=== PATIENT | male | born 1970 | race Caucasian/White ===

== ENCOUNTER → 2017-04-16 | Outpatient (CLI) | payer OTHER, BC | LOC: BMCIMAGING 11:50 → EDSTATUS 11:53 | PROVIDERS: ATTEND Family Medicine | DX: R06.02 Shortness of breath (principal) ==

== ENCOUNTER 2017-05-14 12:45 | Emergency (ER) | payer OTHER, BC ==
[2017-05-14 13:13] VITALS: O2SAT 93
[2017-05-14] MEDS ORDERED: NS 1,000 ML IV ONE ×2 (14:47→15:11)
--- NOTE | 2017-05-14 14:47 | EDPHY ---
General - History Smoking Status: Never smoked Narrative: CHIEF COMPLAINT: Muscle weakness HISTORY OF PRESENT ILLNESS: Patient complains of 3 days of muscle weakness. This was gradual onset. Constant duration. [id number] 1st. Continually worsening. No chest pain or shortness of breath. No confusion. No fever. No difficulty with thought process. Hip the similar process 3 weeks ago that he attributed to taking Rexulti. He stop taking medication and felt better the next day. In the interim he was started on Zyprexa by psychiatrist. When symptoms started 3 days ago he stopped taking this but no improvement. His psychiatrist was concerned about the weakness, thus he sent him here. The weakness is involves all his limbs. He has no difficulty performing his functions but feels as though he is weak when doing so. No incontinence of bowel or bladder. No other associated complaints or modifying factors. REVIEW OF SYSTEMS: Ten systems reviewed and are negative unless otherwise noted in the HPI PCP: Dr. Alonso palma SPECIALISTS: Dr. Heard PAST MEDICAL HISTORY: Bipolar disorder, chronic neck pain PAST SURGICAL HISTORY: Cervical spine fusion 2009 SOCIAL HISTORY: Nonsmoker. No alcohol or drug use. Currently on disability FAMILY HISTORY: Noncontributory EXAMINATION General Appearance: Alert, no distress Head: normocephalic, atraumatic Eyes: Pupils equal and round, no conjunctival pallor or injection. EOMs intact. ENT, Mouth: Mucous membranes moist. Airway patent Neck: Normal inspection, supple, non-tender Respiratory: Lungs are clear to auscultation. No wheezing, rhonchi or crackles Cardiovascular: Regular rate and rhythm. No murmur Gastrointestinal: Abdomen is soft and nontender Back: non-tender, no bony abnormalities Neurological: GCS 15. A&O, nonfocal, normal gait. Strength is symmetric in all 4 limbs. No pronator drift. No tremor. No rigidity in the limbs or proximal musculature. No pronator drift. No dysmetria. Skin: Warm and dry, no rash Extremities: Nontender, no pedal edema Psychiatric: Mood and affect normal DIFFERENTIAL DIAGNOSES: Including but not limited to weakness, dehydration, rhabdomyolysis, MDM: 2:45 p.m. Muscle weakness of 3 days duration. The patient express is that his psychiatrist was originally concern for neuroleptics malignant syndrome. I do not appreciate any evidence of this. He has no altered mentation, no rigidity, no evidence of distal to non media. His vital signs are within normal limits. He is awake alert no acute distress. His strength is symmetric with normal neuro examination. I have ordered laboratory studies, IV fluid. These are all pending at this time. 3:10 p.m. Case discussed with Dr. Aaron. He agrees with MDM thus far. 4:10 p.m. Laboratory studies are all within normal limits, with exception of mild hemoconcentration. I re-evaluated the patient. He still exhibits no signs of neuroleptics malignant syndrome. He is not altered, he is not hyperthermic, he is not rigid, nor does he exhibit any dysautonomia. 4:20 p.m. Case discussed with the patient's psychiatrist Dr. Heard. He agrees based on my assessment and laboratory studies that there is no evidence of in MS at this time. Although he has not evaluated the patient today he is aware the patient's history. He would like to see the patient early next week for outpatient follow-up. 4:40 p.m. Patient re-evaluated. He is resting comfortably in no acute distress. He is not tachycardic or tachypneic. He is feeling better with IV fluid as he did appear to be hemoconcentrated. We discussed discharge home with anti- inflammatories, Aleve 2 pills twice daily. We discussed contacting his primary care physician for outpatient follow-up. We discussed ED precautions for any worsening weakness, numbness, tingling, chest pain, shortness of breath. He is comfortable with this plan and discharged home stable condition. EKG interpretation: Dr. Aaron Sinus rhythm with no acute ischemia. No changes from previous EKG SUPERVISION: Patient was independently examined, but I discussed the case with my secondary supervising physician Dr. Aaron (Tavares Paul) Discussion: I did not see this patient while he was in the emergency department. However his care was discussed with the PA while the patient was in the department. I agree with treatment plan and management. IM the secondary supervising physician (Pedro Aaron) - Objective Vital Signs: Initial Vital Signs Temperature (C) 36.8 C 05/14/17 13:11 Heart Rate 112 H 05/14/17 13:11 Respiratory Rate 24 H 05/14/17 13:11 Blood Pressure 161/99 H 05/14/17 13:11 O2 Sat (%) 93 12/14/17 13:11 O2 Delivery Mode Room Air Allergies/Adverse Reactions: No Known Allergies Allergy (Unverified 05/14/17 13:08) Home Medications: Medication Instructions Recorded Calms Forte Sleep Aid 10/26/12 Clonazepam 4 mg PO HS 10/26/12 Ibuprofen [Advil] 200 mg PO 10/26/12 [place] Carbonate 3 tab PO BID 10/26/12 Ativan 05/14/17 Zyprexa 05/14/17 Laboratory Results: Laboratory Results 05/14/17 14:50 05/14/17 14:50 05/14/17 05/14/17 05/14/17 15:40 14:50 14:50 WBC 10.56 10^3/uL H 10^3/uL (3.80-9.50) RBC 5.46 10^6/uL 10^6/uL (4.40-6.38) Hgb 19.0 g/dL H g/dL (13.7-17.5) Hct 53.4 % H % (40.0-51.0) MCV 97.8 fL fL (81.5-99.8) MCH 34.8 pg H pg (27.9-34.1) MCHC 35.6 g/dL g/dL (32.4-36.7) RDW 12.9 % % (11.5-15.2) Plt Count 196 10^3/uL 10^3/uL (150-400) MPV 11.2 fL fL (8.7-11.7) Neut % (Auto) 71.5 % % (39.3-74.2) Lymph % (Auto) 18.5 % % (15.0-45.0) Saline % (Auto) 8.0 % % (4.5-13.0) Eos % (Auto) 0.9 % % (0.6-7.6) Baso % (Auto) 0.6 % % (0.3-1.7) Nucleat RBC Rel Count 0.0 % % (0.0-0.2) Absolute Neuts (auto) 7.56 10^3/uL H 10^3/uL (1.70-6.50) Absolute Lymphs (auto) 1.95 10^3/uL 10^3/uL (1.00-3.00) Absolute Monos (auto) 0.84 10^3/uL H 10^3/uL (0.30-0.80) Absolute Eos (auto) 0.10 10^3/uL 10^3/uL (0.03-0.40) Absolute Basos (auto) 0.06 10^3/uL 10^3/uL (0.02-0.10) Absolute Nucleated RBC 0.00 10^3/uL 10^3/uL (0-0.01) Immature Gran % 0.5 % % (0.0-1.1) Immature Gran # 0.05 10^3/uL 10^3/uL (0.00-0.10) Sodium 143 mEq/L mEq/L (134-144) Potassium 4.4 mEq/L mEq/L (3.5-5.2) Chloride 99 mEq/L mEq/L (97-110) Carbon Dioxide 27 mEq/l mEq/l (22-31) Anion Gap 17 mEq/L H mEq/L (8-16) BUN 15 mg/dL mg/dL (7-23) Creatinine 1.0 mg/dL mg/dL (0.7-1.3) Estimated GFR > 60 Glucose 125 mg/dL H mg/dL (70-100) Calcium 10.7 mg/dL H mg/dL (8.5-10.4) Phosphorus 3.6 mg/dL mg/dL (2.5-4.5) Creatine Kinase 141 IU/L IU/L (0-224) Urine Color PALE YELLOW Urine Appearance CLEAR Urine pH 6.0 (5.0-7.5) Ur Specific [place] 1.009 (1.002-1.030) Urine Protein NEGATIVE (NEGATIVE) Urine Ketones NEGATIVE (NEGATIVE) Urine Blood NEGATIVE (NEGATIVE) Urine Nitrate NEGATIVE (NEGATIVE) Urine Bilirubin NEGATIVE (NEGATIVE) Urine Urobilinogen NEGATIVE EU EU (0.2-1.0) Ur Leukocyte Esterase NEGATIVE (NEGATIVE) Urine RBC NONE SEEN /hpf /hpf (0-3) Urine WBC NONE SEEN /hpf /hpf (0-3) Ur Epithelial Cells TRACE /lpf /lpf (NONE-1+) Urine Mucus TRACE /lpf /lpf (NONE-1+) Urine Glucose NEGATIVE (NEGATIVE) [place] 0.5 mEq/L L mEq/L (0.6-1.2) Medications Given: Discontinued Medications Sodium Chloride (Ns) 1,000 mls @ 0 mls/hr IV EDNOW ONE; Wide Open PRN Reason: Protocol Stop: 05/14/17 14:48 Last Admin: 05/14/17 14:54 Dose: 1,000 mls Sodium Chloride (Ns) 1,000 mls @ 0 mls/hr IV EDNOW ONE; Wide Open PRN Reason: Protocol Stop: 05/14/17 15:12 Last Admin: 05/14/17 15:23 Dose: Not Given Departure - Departure Disposition: Home, Routine, Self-Care Clinical Impression: Weakness Condition: Good Instructions: Weakness (ED) Additional Instructions: 1. Aleve 2 pills every 12 hr for the next 7-10 days 2. Increase fluid intake 3. Contact primary care physician to be seen early next week 4. Contact psychiatrist to be seen early next week 5. ED precautions for worsening weakness, chest pain, shortness of breath, numbness, tingling Referrals: Chanelle Ulrich MD [Primary Care Provider] - As per Instructions
--- NOTE | 2017-05-14 15:02 | CPEKG ---
Heart Rate: 96 RR Interval: 625 P-R Interval: 196 QRSD Interval: 82 QT Interval: 336 QTC Interval: 425 P [place]: 54 QRS [place]: -79 T Wave [place]: 45 EKG Severity - ABNORMAL ECG - EKG Impression: SINUS RHYTHM EKG Impression: PROBABLE INFERIOR INFARCT, AGE INDETERMINATE EKG Impression: CONSIDER ANTERIOR INFARCT Electronically Signed By: Pedro Aaron 14-May-2017 15:12:09
[2017-05-14 15:07] LABS: % IMMATURE GRANULYOCYTES 0.5 % (0.0-1.1); ABSOLUTE IMMATURE GRANULOCYTES 0.05 10^3/uL (0.00-0.10); ADD DIFF? NO; ADD MORPH? NO; ADD SCAN? NO; ATYPICAL LYMPHOCYTE FLAG 0 (0-99); FRAGMENT RBC FLAG 0 (0-99); HEMATOCRIT 53.4 % (40.0-51.0); LEFT SHIFT FLG 0 (0-99); LIPEMIA HEMOLYSIS FLAG 90 (0-99); MEAN CELL HEMOGLOBIN 34.8 pg (27.9-34.1); MEAN CELL HEMOGLOBIN CONCENTR. 35.6 g/dL (32.4-36.7); MEAN CELL VOLUME 97.8 fL (81.5-99.8); MEAN PLATELET VOLUME 11.2 fL (8.7-11.7); PLATELET CLUMPS FLAG 0 (0-99); PLATELET COUNT 196 10^3/uL (150-400); RED BLOOD CELL COUNT 5.46 10^6/uL (4.40-6.38); RED CELL DISTRIBUTION WIDTH 12.9 % (11.5-15.2)
[2017-05-14 15:21] LABS: ANION GAP 17 mEq/L (8-16); CALCIUM 10.7 mg/dL (8.5-10.4); CARBON DIOXIDE 27 mEq/l (22-31); CHLORIDE 99 mEq/L (97-110); GLOMERULAR FILTRATION RATE > 60; GLUCOSE 125 mg/dL (70-100); LITHIUM 0.5 mEq/L (0.6-1.2); POTASSIUM 4.4 mEq/L (3.5-5.2); SODIUM 143 mEq/L (134-144)
[2017-05-14 15:54] LABS: COLOR PALE YELLOW; LEUKOCYTE ESTERASE,URINE NEGATIVE (NEGATIVE); NITRITE,URINE NEGATIVE (NEGATIVE)
[2017-05-14 16:10] LABS: MUCUS TRACE /lpf (NONE-1+)
[2017-05-14 16:11] LABS: RBC,URINE NONE SEEN /hpf (0-3); WBC,URINE NONE SEEN /hpf (0-3)
[2017-05-14 16:54] VITALS: BP 158/82; PULSE 96; RESP 20; TEMP 98.4
== END 2017-05-14 16:45 | disposition home or self-care (01) ==
DX: R53.1 Weakness (principal); E86.9 Volume depletion, unspecified

== ENCOUNTER → 2017-10-08 | Outpatient (CLI) | payer OTHER, BC | LOC: FIMAGING 11:03 | PROVIDERS: ATTEND Family Medicine | DX: R16.0 Hepatomegaly, not elsewhere classified (principal); K76.0 Fatty (change of) liver, not elsewhere classified ==

== ENCOUNTER 2017-12-07 14:24 | Emergency (ER) | payer OTHER, BC ==
[2017-12-07] MEDS ORDERED: IOPAMIDOL (ISOVUE-300) 100 ML BTL ONE (14:34)
[2017-12-07 14:39] VITALS: BP 133/95
[2017-12-07 14:41] LABS: PLATELET COUNT 161 10^3/uL (150-400)
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
[2017-12-07 14:56] LABS: INR 0.96 (0.83-1.16)
== END 2017-12-07 16:48 | disposition home or self-care (01) ==
LOC: EDUNIT#
PROC: 0HQ0XZZ Repair Scalp Skin, External Approach (ICD-10-PCS; principal; 2017-12-07)
DX: S22.31XA Fracture of one rib, right side, initial encounter for closed fracture (principal); S01.01XA Laceration without foreign body of scalp, initial encounter; V47.5XXA Car driver injured in collision with fixed or stationary object in traffic accident, initial encounter; Y92.410 Unspecified street and highway as the place of occurrence of the external cause; Y99.8 Other external cause status; Y93.89 Activity, other specified
CPT/HCPCS: 12001; 70450; 71260; 72125; 72129; 72132; 74177; 99285; L0172; Q9967; 82435-PO; 82565-PO; 82947-PO; 84132-PO; 84295-PO; 84520-PO; 85014-PO; G0480